=== PATIENT | male | born 1995 | race American Indian/Alaskan Native ===

== ENCOUNTER 2021-08-15 22:12 | Emergency (ER) | payer SELFPAY ==
--- NOTE | 2021-08-15 22:31 | Emergency Department Report ---
HPI - General Time Seen by Provider: 08/15/21 22:18 - HPI HPI: Room 24 The patient is a 25-year-old male present with a chief complaint of unresponsiveness. Per EMS the patient was found unresponsive on the side of the road after his friend called 911. EMS reports the patient was found hypoxic 89% on room air and unresponsive upon their arrival. Patient was administered 1 mg of Narcan and awakened immediately. EMS spoke with the patient's mother who states that the patient regularly crushes and abuses Percocets. Patient denies using Percocets and states he just crushed up with a Tylenol today. When confronted with with his mother stated the patient continues to deny ED Past Medical Hx - Past Medical History Hx Seizures: Yes (No meds) Hx Psychiatric Treatment: Yes (Schizophrenia) - Surgical History Past Surgical History?: No - Family History Family history: no significant - Social History Substance Use Type: Other (Per mother patient abuses Percocet) ED Review of Systems ROS: Stated complaint: UNRESPONSIVE Other details as noted in HPI Constitutional: no symptoms reported Eyes: denies: eye pain Respiratory: no symptoms reported Cardiovascular: denies: chest pain Endocrine: no symptoms reported Gastrointestinal: denies: abdominal pain Genitourinary: denies: dysuria Musculoskeletal: denies: back pain Physical Exam - Physical Exam Vital Signs: Vital Signs 08/15/21 08/15/21 08/15/21 22:14 22:19 22:31 Temperature 97.4 F L Pulse Rate 75 Respiratory 10 L Rate Blood Pressure 135/79 127/75 O2 Sat by Pulse 100 97 Oximetry 08/15/21 08/15/21 08/16/21 23:01 23:31 00:01 Temperature Pulse Rate 85 74 78 Respiratory 13 6 L Rate Blood Pressure 124/74 114/77 113/77 O2 Sat by Pulse 97 98 97 Oximetry 08/16/21 08/16/21 08/16/21 00:05 00:31 01:00 Temperature Pulse Rate 68 68 Respiratory 6 L 10 L Rate Blood Pressure 113/77 111/80 O2 Sat by Pulse 96 100 97 Oximetry 08/16/21 08/16/21 08/16/21 01:01 02:01 03:00 Temperature Pulse Rate 68 65 Respiratory 13 9 L 12 Rate Blood Pressure 117/74 98/55 O2 Sat by Pulse 100 98 Oximetry 08/16/21 03:01 Temperature Pulse Rate 64 Respiratory Rate Blood Pressure 103/59 O2 Sat by Pulse 97 Oximetry Physical Exam: GENERAL: The patient is well-developed well-nourished male lying on stretcher not appearing to be in acute distress. [] HEENT: Normocephalic. Atraumatic. Extraocular motions are intact. Patient has moist mucous membranes. NECK: Supple. Trachea midline CHEST/LUNGS: Clear to auscultation. There is no respiratory distress noted. HEART/CARDIOVASCULAR: Regular. There is no tachycardia. There is no gallop rub or murmur. ABDOMEN: Abdomen is soft, nontender. Patient has normal bowel sounds. There is no abdominal distention. SKIN: There is no rash. There is no edema. There is no diaphoresis. NEURO: The patient is resting with his eyes closed but awakens to voice and follows commands. The patient is cooperative. The patient has no focal neurologic deficits. The patient has normal speech MUSCULOSKELETAL: There is no evidence of acute injury. ED Medical Decision Making - Lab Data Result diagrams: 08/15/21 23:00 08/15/21 23:00 Laboratory Tests 08/15/21 08/15/21 08/15/21 23:00 23:00 23:00 WBC 8.1 RBC 4.81 Hgb 14.3 Hct 43.3 MCV 90 MCH 30 MCHC 33 RDW 13.1 L Plt Count 200 Lymph % (Auto) 16.2 Peach % (Auto) 7.0 Eos % (Auto) 1.3 Baso % (Auto) 0.5 Lymph # (Auto) 1.3 Peach # (Auto) 0.6 Eos # (Auto) 0.1 Baso # (Auto) 0.0 Seg Neutrophils % 75.0 H Seg Neutrophils # 6.1 Sodium 138 Potassium 3.2 L Chloride 100.0 Carbon Dioxide 24 Anion Gap 17 BUN 8 L Creatinine 1.1 Estimated GFR > 60 BUN/Creatinine Ratio 7 Glucose 88 Calcium 8.7 Magnesium 2.30 Total Bilirubin 0.20 AST 77 H ALT 51 Alkaline Phosphatase 88 Total Creatine Kinase 973 H CK-MB (CK-2) 5.0 H CK-MB (CK-2) Rel Index 0.5 Troponin T < 0.010 Total Protein 7.5 Albumin 4.6 Albumin/Globulin Ratio 1.6 Salicylates Urine Opiates Screen Urine Methadone Screen Acetaminophen Ur Barbiturates Screen Ur Phencyclidine Scrn Ur Amphetamines Screen U Benzodiazepines Scrn Urine Cocaine Screen U Marijuana (THC) Screen Plasma/Serum Alcohol < 0.01 08/15/21 08/15/21 08/16/21 23:00 23:00 03:11 WBC RBC Hgb Hct MCV MCH MCHC RDW Plt Count Lymph % (Auto) Peach % (Auto) Eos % (Auto) Baso % (Auto) Lymph # (Auto) Peach # (Auto) Eos # (Auto) Baso # (Auto) Seg Neutrophils % Seg Neutrophils # Sodium Potassium Chloride Carbon Dioxide Anion Gap BUN Creatinine Estimated GFR BUN/Creatinine Ratio Glucose Calcium Magnesium Total Bilirubin AST ALT Alkaline Phosphatase Total Creatine Kinase CK-MB (CK-2) CK-MB (CK-2) Rel Index Troponin T Total Protein Albumin Albumin/Globulin Ratio Salicylates < 0.3 L Urine Opiates Screen Presumptive negative Urine Methadone Screen Presumptive negative Acetaminophen 5.0 L Ur Barbiturates Screen Presumptive negative Ur Phencyclidine Scrn Presumptive negative Ur Amphetamines Screen Presumptive negative U Benzodiazepines Scrn Presumptive negative Urine Cocaine Screen Presumptive negative U Marijuana (THC) Screen Presumptive positive Plasma/Serum Alcohol - Differential Diagnosis Opiate overdose Critical care attestation.: If time is entered above; I have spent that time in minutes in the direct care of this critically ill patient, excluding procedure time. ED Disposition Clinical Impression: Substance abuse, Hypokalemia Disposition: 01 HOME / SELF CARE / HOMELESS Is pt being admited?: No Does the pt Need Aspirin: No Condition: Stable Instructions: Substance Use Disorder and Mental Illness Additional Instructions: Return to the emergency department should you develop worsening symptoms, inability to tolerate food or liquids, high fever or any other concerns Referrals: [facility] [Outside] - 3-5 Days Time of Disposition: 03:50
[2021-08-15 23:18] LABS: Hematocrit 43.3 % (35.5-45.6); Hemoglobin 14.3 gm/dl (11.8-15.2); Mean Corpuscular HGB Conc 33 % (32-34); Mean Corpuscular Volume 90 fl (84-94); Platelet Count 200 K/mm3 (140-440); Red Blood Count 4.81 M/mm3 (3.65-5.03); Red Cell Distribution Width 13.1 % (13.2-15.2)
[2021-08-15 23:25] LABS: Basophils % (Auto) 0.5 % (0.0-1.8); Eosinophils # (Auto) 0.1 K/mm3 (0.0-0.4); Eosinophils % (Auto) 1.3 % (0.0-4.3); Lymphocytes # (Auto) 1.3 K/mm3 (1.2-5.4); Lymphocytes % (Auto) 16.2 % (13.4-35.0); Monocytes # (Auto) 0.6 K/mm3 (0.0-0.8)
[2021-08-15 23:36] LABS: Alanine Aminotransferase 51 units/L (7-56); Albumin 4.6 g/dL (3.9-5); BUN/Creatinine Ratio 7; Blood Urea Nitrogen 8 mg/dL (9-20); Calcium 8.7 mg/dL (8.4-10.2); Hemolysis Index 27
[2021-08-16] MEDS ORDERED: NALOXONE 2 MG/2 ML INJ IV ONE (00:23)
[2021-08-16 03:04] VITALS: BP 103/59
[2021-08-16 03:35] LABS: Amphetamine Screen,Urine PRESUMPTIVE NEGATIVE; Benzodiazepines Screen,Urine PRESUMPTIVE NEGATIVE; Cannabinoid Screen,Urine PRESUMPTIVE POSITIVE; Cocaine Screen,Urine PRESUMPTIVE NEGATIVE; Methadone Screen,Urine PRESUMPTIVE NEGATIVE; Opiate Screen,Urine PRESUMPTIVE NEGATIVE
[2021-08-16] MEDS ORDERED: POTASSIUM CHLORIDE ER 20 MEQ TAB PO ONE (03:48)
== END 2021-08-16 04:20 | disposition home or self-care (01) ==
LOC: ED 22:12
DX: F19.10 Other psychoactive substance abuse, uncomplicated (principal); E87.6 Hypokalemia; F20.9 Schizophrenia, unspecified; Z79.899 Other long term (current) drug therapy
CPT/HCPCS: 36415; 80053; 80307; 82550; 82553; 83735; 84484; 85025; 96374; 99284; J2310; 80320; G0480